=== PATIENT | female | born 1950 | race Caucasian/White ===

== ENCOUNTER 2020-02-26 10:33 | Outpatient (CLI) | payer MEDICARE, SELFPAY ==
--- NOTE | ~2020-02-26 | CT_ITS ---
EXAMINATION: CT abdomen wo/w con DATE: 02/26/2020 11:39 INDICATION: Abnormal liver function tests. TECHNIQUE: Computed tomography (CT) of the abdomen was performed without and with 100 mL Omnipaque 35 0 intravenous contrast. Automated exposure control and iterative reconstruction technique were employ ed. The dose-length product was 983.06 mGy-cm. COMPARISON: Abdomen MRI 10/31/2016 FINDINGS: There is a 4 mm nodule in right lung lower lobe, likely benign. No pleural effusion. The he art size is normal. No pericardial effusion. There is moderate intrahepatic biliary duct dilatation a nd dilatation of the common duct to 18 mm. The gallbladder is distended. There is dilatation of the p ancreatic duct. There is a 3.2 x 2.6 cm mass in the head of the pancreas. The spleen and adrenal glan ds are normal. There is mild atrophy of right kidney and moderate atrophy of left kidney. There is a 5.8 cm mass in right kidney lower pole containing areas of macroscopic fat, consistent with an angiom yolipoma. The gallbladder There is mild atrophy of right kidney and moderate atrophy of left kidney. There are no dilated loops of bowel. There are no pathologically enlarged lymph nodes. There is no fr ee intraperitoneal fluid. There is mild lumbar spondylosis. IMPRESSION: 1. 3.2 x 2.6 of a mass of the head of the pancreas, consistent with primary adenocarcinoma. I called this result to Naida Cummins on 02/26/20 at 12:09 PM. 2. 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 Reviewed, dictated and finalized at location A. IMPRESSION: 1. 3.2 x 2.6 of a mass of the head of the pancreas, consistent with primary chencho nocarcinoma. I called this result to Naida Cummins on 02/26/20 at 12:09 PM. 2. 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
[2020-02-26 11:30] LABS: Estimated Glomerular Filt Rate 45
[2020-02-26 13:49] LABS: Hepatitis B Surface Antigen Negative (Negative)
[2020-02-26 13:54] LABS: HAV RESULT Negative (Negative); Hepatitis B Core IgM Result Negative (Negative)
[2020-02-26 14:06] LABS: Hepatitis C Virus Antibody Negative (Negative)
== END 2020-02-26 10:34 | disposition home or self-care (01) ==
PROVIDERS: PCP Nurse Practitioner Family; Visit Provider Nurse Practitioner Family
DX: R74.8 Abnormal levels of other serum enzymes (principal); R94.5 Abnormal results of liver function studies
CPT/HCPCS: 36415; 74170; 80074; Q9967

== ENCOUNTER 2020-08-03 11:40 | Emergency (ER) | payer MEDICARE, SELFPAY ==
--- NOTE | ~2020-08-03 | XR_ITS ---
EXAMINATION: XR foot RT min 3V EXAM DATE: 08/03/2020 12:03 INDICATION: Initial encounter following injury, with pain of the right foot. TECHNIQUE: Right foot dorsoplantar, lateral and oblique projections obtained and reviewed. There is no prior study for comparison. 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 . There are no acute fractures or dis locations identified. There is no subcutaneous gas. The soft tissue is unremarkable. There are no radiopaque foreign bodies. 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 Reviewed, dictated and finalized at location B. [employer]
[2020-08-03 11:52] VITALS: BP 142/73; PULSE 98; RESP 18; TEMP 36.6; O2SAT 100
--- NOTE | 2020-08-03 11:58 | ED.LOWEXIN ---
HPI - Extremity Injury (Lower) General Chief Complaint: Extremity Injury, Lower Stated Complaint: Right foot Pain Source: patient Mode of arrival: ambulatory Limitations: no limitations History of Present Illness HPI Narrative: Patient is a 69-year-old female who presents with right foot pain. Patient reports pain x2 to 3 days. Patient is currently undergoing chemo for pancreatic cancer. She is scheduled for surgery in approximately 6 days. Patient denies injury to foot. Reports redness and tenderness with ambulation. She denies all other complaints at this time. MD complaint: foot injury Related Data Home Medications Medication Instructions Recorded Confirmed empagliflozin [Jardiance] 25 mg PO DAILY 08/03/20 08/03/20 ferrous sulfate 325 mg PO DAILY 08/03/20 08/03/20 Allergies Allergy/AdvReac Type Severity Reaction Status Date / Time codeine Allergy Intermediate Nausea Verified 08/03/20 11:57 Review of Systems Review of Systems: Narrative: CONSTITUTIONAL: Denies fever, chills, or sweats. EYES: Denies visual changes, redness, or discharge. ENT: Denies rhinorrhea, congestion, sore throat, or otalgia. CARDIOVASCULAR: Denies chest pain, palpitations, or edema. RESPIRATORY: Denies cough or dyspnea. GASTROINTESTINAL: Denies abdominal pain, nausea, vomiting, or diarrhea. GENITOURINARY: Denies dysuria or hematuria. SKIN: Denies rash or itching. MUSCULOSKELETAL: Right foot pain NEUROLOGIC: Denies headache, numbness, dizziness, or weakness. PSYCHIATRIC: Denies anxiety or depression. 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 Cataract Mitral valve prolapse Pancreatic cancer Postmenopausal Renal disease UTI (urinary tract infection) Surgical History Surgical History H/O dilation and curettage H/O tubal ligation Family History Family History Sibling Family history of diabetes mellitus in first degree relative Father Acute myocardial infarction, Onset Age: 62 Mother Family history of cardiac disorder Social History Social History (Updated 08/03/20 @ 12:14 by DONTA Dang) Smoking status: Never smoker Alcohol intake: current Alcohol use details: occasional Substance use: never Gender identity (if verbalized by the patient): Female Exam Narrative: Exam Narrative: GENERAL: Pale, patient continuing chemotherapy HEAD: Normocephalic, atraumatic. EYES: No redness or drainage. Conjunctiva are normal. ENT: Mucous membranes pink and moist. CHEST: No respiratory distress. EXTREMITIES: Right foot pain SKIN: Warm, dry, no rash. NEURO: No focal deficits. Alert and oriented x3. Gait steady. PSYCH: Normal affect. No signs of depression or anxiety. Course Vital Signs Vital signs: Vital Signs Temperature 36.6 C 08/03/20 11:52 Pulse Rate 98 08/03/20 11:52 Respiratory Rate 18 08/03/20 11:52 Blood Pressure 142/73 H 08/03/20 11:52 Pulse Oximetry 100 08/03/20 11:52 Temperature 36.6 C 08/03/20 11:52 Pulse Rate 98 08/03/20 11:52 Respiratory Rate 18 08/03/20 11:52 Blood Pressure 142/73 H 08/03/20 11:52 Pulse Oximetry 100 08/03/20 11:52 Reviewed. Patient has been instructed to follow-up with her PCP regarding her blood pressure. MDM - Extremity Injury (Lower) MDM Narrative Medical decision making narrative: Patient has no acute injury per x-ray. 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 Discussed with patient the need to follow-up with podiatry. Patient put and postop shoe for comfort. Patient is stable for discharge to home with outpatient follow-up as discussed. Differential Diagnosis Differential diagnosis: Likely fracture of toe, ankle fracture and other Critical Car
== END 2020-08-03 12:30 | disposition home or self-care (01) ==
PROVIDERS: Emergency Provider Nurse Practitioner; PCP Nurse Practitioner Family
DX: M79.671 Pain in right foot (principal); S92.311A Displaced fracture of first metatarsal bone, right foot, initial encounter for closed fracture; X58.XXXA Exposure to other specified factors, initial encounter; C25.9 Malignant neoplasm of pancreas, unspecified; M19.90 Unspecified osteoarthritis, unspecified site; I34.1 Nonrheumatic mitral (valve) prolapse
CPT/HCPCS: 73630; 99214; G0463